=== PATIENT | male | born 1990 | race Caucasian/White ===

== ENCOUNTER → 2016-09-03 | Outpatient (CLI) | payer OTHER ==
[2016-09-03 17:16] LABS: BASO % 0.6 % (0.0-1.0); EOS # 0.2 K/mm3 (0.0-0.50); EOS % 2.1 % (0.0-3.0); LARGE UNSTAINED CELL # 0.2 K/mm3 (0.0-0.4); LYMPH % 44.1 % (24.0-44.0); MEAN CORPUSCULAR HEMOGLOBIN 29.5 pg (27.0-33.0); MEAN CORPUSCULAR HGB CONC 33.8 g/dl (32.0-36.5); MEAN CORPUSCULAR VOLUME 87.4 fl (80.0-96.0); MONO # 0.5 K/mm3 (0.0-0.8); MONO % 7.5 % (0.0-5.0); NEUTROPHILS # 2.9 K/mm3 (1.8-7.7); NEUTROPHILS % 42.7 % (36.0-66.0); PLATELET COUNT, AUTOMATED 228 k/mm3 (150-450); RED CELL DISTRIBUTION WIDTH 12.5 % (11.5-14.5); WHITE BLOOD COUNT 6.9 K/mm3 (4.0-10.0)
[2016-09-03 17:21] LABS: ALBUMIN 3.6 GM/DL (3.2-5.2); ALBUMIN/GLOBULIN RATIO 1.13 (1.00-1.93); ALKALINE PHOSPHATASE 53 U/L (45-117); ALT/SGPT 32 U/L (12-78); ANION GAP 8 MEQ/L (8-16); AST/SGOT 18 U/L (15-37); BILIRUBIN,TOTAL 0.4 MG/DL (0.2-1.0); BLOOD UREA NITROGEN 13 MG/DL (7-18); CALCIUM LEVEL 8.5 MG/DL (8.5-10.1); CARBON DIOXIDE LEVEL 26 MEQ/L (21-32); CHLORIDE LEVEL 104 MEQ/L (98-107); CREATININE FOR GFR 0.65 MG/DL (0.70-1.30); GLOMERULAR FILTRATION RATE > 60.0 (>60); GLUCOSE, FASTING 89 MG/DL (70-105); POTASSIUM SERUM 4.3 MEQ/L (3.5-5.1); SODIUM LEVEL 138 MEQ/L (136-145); TOTAL PROTEIN 6.8 GM/DL (6.4-8.2)
== END ==
LOC: M WUC 14:40
PROVIDERS: ATTEND Surgery
DX: Z01.812 Encounter for preprocedural laboratory examination (principal); I10 Essential (primary) hypertension; E66.01 Morbid (severe) obesity due to excess calories

== ENCOUNTER → 2016-09-06 | Outpatient (CLI) | payer OTHER | LOC: M WUC 10:49 | PROVIDERS: ATTEND Surgery | DX: Z01.812 Encounter for preprocedural laboratory examination (principal); E66.01 Morbid (severe) obesity due to excess calories; K21.9 Gastro-esophageal reflux disease without esophagitis; I10 Essential (primary) hypertension ==

== ENCOUNTER 2016-10-20 08:36 | Emergency (ER) | payer OTHER ==
[~2016-10-20] VITALS: Ht 185.4 cm; Wt 160.0 kg
[2016-10-20] MEDS ORDERED: NS 1,000 ML IV ONE ×2 (09:00→09:45)
[2016-10-20] MEDS ORDERED: HYDROmorphone HCL 1 MG/ML SYRINGE (J1170) IV PRN (09:00)
[2016-10-20] MEDS ORDERED: ONDANSETRON 4MG/2ML VIAL (J2405) IV ONE (09:00)
[2016-10-20 09:05] LABS: BASO % 0.4 % (0.0-1.0); EOS # 0.1 K/mm3 (0.0-0.50); EOS % 1.6 % (0.0-3.0); LARGE UNSTAINED CELL # 0.1 K/mm3 (0.0-0.4); LARGE UNSTAINED CELL % 1.6 % (0.0-4.0); LYMPH # 3.1 K/mm3 (1.5-6.5); LYMPH % 38.5 % (24.0-44.0); MEAN CORPUSCULAR HEMOGLOBIN 29.5 pg (27.0-33.0); MEAN CORPUSCULAR HGB CONC 34.4 g/dl (32.0-36.5); MEAN CORPUSCULAR VOLUME 85.6 fl (80.0-96.0); MONO # 0.4 K/mm3 (0.0-0.8); MONO % 4.9 % (0.0-5.0); NEUTROPHILS # 4.2 K/mm3 (1.8-7.7); NEUTROPHILS % 52.8 % (36.0-66.0); PLATELET COUNT, AUTOMATED 197 k/mm3 (150-450); RED CELL DISTRIBUTION WIDTH 12.8 % (11.5-14.5)
[2016-10-20 09:13] LABS: INR 0.95
[2016-10-20] MEDS ORDERED: HYDROmorphone HCL 1 MG/ML SYRINGE (J1170) IV ONE (09:15)
[2016-10-20] MEDS ORDERED: PIPERACILLIN/TAZOBACTAM SOD 4.5 GM in D5W MINI-BAG PLUS 50 ML IV ONE (09:15)
[2016-10-20] MEDS ORDERED: NS 1,000 ML IV SCH (09:29)
[2016-10-20 09:35] LABS: ALBUMIN 3.5 GM/DL (3.2-5.2); ALKALINE PHOSPHATASE 46 U/L (45-117); ALT/SGPT 23 U/L (12-78); ANION GAP 5 MEQ/L (8-16); AST/SGOT 10 U/L (15-37); BILIRUBIN,DIRECT 0.2 MG/DL (0.0-0.2); BILIRUBIN,TOTAL 0.5 MG/DL (0.2-1.0); BLOOD UREA NITROGEN 9 MG/DL (7-18); CALCIUM LEVEL 8.4 MG/DL (8.5-10.1); CARBON DIOXIDE LEVEL 25 MEQ/L (21-32); CHLORIDE LEVEL 109 MEQ/L (98-107); CREATININE FOR GFR 0.57 MG/DL (0.70-1.30); GLOMERULAR FILTRATION RATE > 60.0 (>60); GLUCOSE, FASTING 145 MG/DL (70-105); POTASSIUM SERUM 3.3 MEQ/L (3.5-5.1); SODIUM LEVEL 139 MEQ/L (136-145); TOTAL PROTEIN 6.2 GM/DL (6.4-8.2)
[2016-10-20] MEDS ORDERED: NS 500 ML IV ONE (09:45)
[2016-10-20] MEDS ORDERED: ISOVUE-370 76% 100ML VIAL (Q9967) As Ordered ONE (09:56)
[2016-10-20] MEDS ORDERED: FLUCONAZOLE 200 MG in APPROPRIATE DILUENT 1 EA IV ONE (10:00)
[2016-10-20] MEDS: HYDROmorphone HCL 1 MG/ML SYRINGE (J1170) IV PRN ×2 (10:22→11:00)
--- NOTE | 2016-10-20 10:52 | REP ---
PORTABLE CHEST: AP portable view of the chest is performed and compared to prior study of 12/17/2006. There is free intraperitoneal air under the diaphragm. There is somewhat poor ventilation of the lungs with mild bibasilar atelectatic change. Cardiac silhouette appears magnified. IMPRESSION: Free intraperitoneal air identified under the diaphragms. Dr. Goel was informed by telephone at the time of the exam 9:23 a.m., 10/20/2016. Signed by Dexter Berry MD 10/20/2016 07:26 P
[2016-10-20] MEDS ORDERED: PANTOPRAZOLE SODIUM 40 MG in D5W MINI-BAG PLUS 50 ML IV SCH (11:00)
--- NOTE | 2016-10-20 11:19 | REP ---
CT ABDOMEN AND PELVIS WITH IV CONTRAST: TECHNIQUE: Axial contrast enhanced images from the lung bases to the pubic symphysis using 100 mL Isovue 370 intravenous contrast material with multiplanar reformations. The visualized lung bases demonstrate mild atelectatic changes. There is free intraperitoneal air seen mainly in the anterior upper abdomen. Patient has had recent gastric bypass surgery. There are foci of free air along the left side of the gastric pouch and this may be the source of the free intraperitoneal air. There is mild free fluid in the pelvis. Liver, spleen, adrenals, pancreas and kidneys are grossly unremarkable. There is streak artifact from the patient's arms. Reportedly he was unable to raise the arms above his head. There is no abdominal aortic aneurysm. No significant adenopathy is seen in the abdomen or pelvis. No bowel thickening is seen. Urinary bladder is grossly unremarkable. IMPRESSION: Free intraperitoneal air as noted on recent chest radiograph. Dr. Goel was already informed of these findings. There is mild free fluid in the pelvis. Patient has had recent gastric bypass surgery. There are foci of free air along the left side of the gastric pouch and this may be the source of the free intraperitoneal air. Signed by Dexter Berry MD 10/20/2016 07:27 P
[2016-10-20 11:44] VITALS: BP 141/65
== END 2016-10-20 11:48 | disposition short-term general hospital (02) ==
LOC: EDBD 08:36 → M ED 09:12
DX: K91.81 Other intraoperative complications of digestive system (principal); Z98.84 Bariatric surgery status
CPT/HCPCS: 71010; 74177; 80048; 80076; 83690; 85025; 85610; 86850; 86900; 86901; 93041; 96374; 96375; 96376; 99284; C9113; J1170; J2405; J2543; Q9967

== ENCOUNTER 2017-05-01 03:44 | Emergency (ER) | payer OTHER | END 2017-05-01 04:29 | disposition left against medical advice (07) | LOC: M ED 03:44 | DX: Z53.21 Procedure and treatment not carried out due to patient leaving prior to being seen by health care provider (principal) ==

== ENCOUNTER 2019-03-16 08:35 | Emergency (ER) | payer OTHER ==
[~2019-03-16] VITALS: Ht 188 cm; Wt 158.4 kg
[2019-03-16 08:35] VITALS: BP 168/101
[~2019-03-16 08:35] MED LIST: ADDE30CA3 PO; ATIV1TAB10 PO; OMEP40CA97 PO
--- NOTE | 2019-03-16 09:22 | REP ---
Left knee series: Five views. History: Pain after fall. Findings: Five views left knee demonstrate three compartment osteoarthritis with narrowing and spur formation in the patellofemoral compartment and medial lateral tibial femoral spurring. There is no evidence of fracture, subluxation, or joint effusion. Impression: Three compartment osteoarthritis. No acute bony abnormality. Electronically Signed by Erick Swenson MD 03/16/2019 09:13 A
[2019-03-16] MEDS ORDERED: PRED20TA PO (09:49)
[2019-03-16] MEDS ORDERED: ACETAMINOPHEN 325 MG TAB PO ONE (10:00)
== END 2019-03-16 10:01 | disposition home or self-care (01) ==
LOC: M ED 08:35
DX: S89.92XA Unspecified injury of left lower leg, initial encounter (principal); M17.12 Unilateral primary osteoarthritis, left knee; W01.0XXA Fall on same level from slipping, tripping and stumbling without subsequent striking against object, initial encounter; Y99.0 Civilian activity done for income or pay; G47.33 Obstructive sleep apnea (adult) (pediatric); E66.9 Obesity, unspecified; Z79.899 Other long term (current) drug therapy

== ENCOUNTER 2019-06-02 03:51 | Emergency (ER) | payer OTHER, BC ==
[~2019-06-02] VITALS: Ht 185.4 cm; Wt 172.7 kg
[~2019-06-02 03:51] MED LIST changes: +PRED20TA PO
[2019-06-02] MEDS ORDERED: KETOROLAC 60 MG/2 ML VIAL (J1885) IM ONE (06:15)
[2019-06-02 06:37] VITALS: BP 132/77
[2019-06-02] MEDS ORDERED: KETO10TAB PO (06:39)
--- NOTE | 2019-06-02 09:13 | REP ---
REPEAT DICTATION CT LUMBAR SPINE WITHOUT CONTRAST: HISTORY: Pain. Preliminary report is provided at time of exam by [facility]. 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 No other extra vertebral abnormality is seen. Lumbar vertebral body heights are preserved. Alignment is normal. There is no evidence of spondylolysis or spondylolisthesis. Discogenic spurring is seen anteriorly at the T12-L1 and L1-L2 disc levels. There is mild disc space narrowing at L3-4. There is a right posterior and foraminal disc protrusion at L5-S1 compressing and displacing the right S1 root. At L4-5, there is a left lateral and left foraminal disc protrusion producing foraminal narrowing. At L3-4 there is minimal diffuse bulging. IMPRESSION: Left-sided inferior vena cava noted incidentally. Moderate-sized the right posterior and right foraminal focal disc protrusion at L5-S1 with nerve root compression and foraminal narrowing. Left foraminal and left lateral disc protrusion at L4-5. Electronically Signed by Erick Swenson MD 06/02/2019 02:00 P
--- NOTE | 2019-06-03 11:22 | ED PDOC ---
Post-Departure Follow-Up dr vela faxed formal report of ct ls spine for fu Yamileth Cui MD Jun 03, 2019 11:22
== END 2019-06-02 06:56 | disposition home or self-care (01) ==
LOC: M ED 03:51
DX: M51.36 Other intervertebral disc degeneration, lumbar region (principal); M48.061 Spinal stenosis, lumbar region without neurogenic claudication; M51.26 Other intervertebral disc displacement, lumbar region; M51.27 Other intervertebral disc displacement, lumbosacral region; M25.78 Osteophyte, vertebrae; E66.9 Obesity, unspecified; Z98.84 Bariatric surgery status
CPT/HCPCS: 72131; 96372; 99283; J1885

== ENCOUNTER → 2019-10-25 | Outpatient (REF) | payer BC ==
[~2019-10-25] MED LIST changes: +KETO10TAB PO
[2019-11-19 20:39] LABS: BASO # 0.1 10^3/uL (0.0-0.2); BASO % 0.7 % (0.0-1.0); EOS # 0.1 10^3/uL (0.0-0.5); EOS % 1.2 % (0.0-3.0); HEMATOCRIT 48.1 % (42.0-52.0); HEMOGLOBIN 15.7 g/dl (13.5-17.5); LYMPH # 2.7 10^3/uL (1.5-5.0); MEAN CORPUSCULAR HGB CONC 32.6 g/dl (32.0-36.5); MEAN CORPUSCULAR VOLUME 88.7 fl (80.0-96.0); MONO # 0.6 10^3/uL (0.0-0.8); MONO % 9.3 % (0.0-5.0); NEUTROPHILS # 3.4 10^3/uL (1.5-8.5); NEUTROPHILS % 49.7 % (36.0-66.0); PLATELET COUNT, AUTOMATED 234 10^3/uL (150-450); RED BLOOD COUNT 5.42 10^6/uL (4.30-6.10); WHITE BLOOD COUNT 6.9 10^3/uL (4.0-10.0)
[2019-11-26 13:31] LABS: ALBUMIN 3.9 GM/DL (3.2-5.2); ALT/SGPT 19 U/L (12-78); BILIRUBIN,TOTAL 0.7 MG/DL (0.2-1.0); BLOOD UREA NITROGEN 11 MG/DL (7-18); CALCIUM LEVEL 8.7 MG/DL (8.5-10.1); CARBON DIOXIDE LEVEL 28 MEQ/L (21-32); CHLORIDE LEVEL 107 MEQ/L (98-107); CREATININE FOR GFR 0.73 MG/DL (0.70-1.30); GLOMERULAR FILTRATION RATE > 60.0 (>60); GLUCOSE, FASTING 82 MG/DL (70-100); SODIUM LEVEL 141 MEQ/L (136-145); TOTAL 25(OH) VITAMIN D 13.9 NG/ML (30.0-100.0); TOTAL PROTEIN 6.9 GM/DL (6.4-8.2)
[2019-11-26 13:35] LABS: HEMOGLOBIN A1c 5.6 %
== END ==
LOC: M WUC 13:45
PROVIDERS: ATTEND Physician Assistant
DX: Z13.220 Encounter for screening for lipoid disorders (principal); Z13.29 Encounter for screening for other suspected endocrine disorder

== ENCOUNTER 2020-04-06 01:41 | Observation (INO) | payer BC ==
[~2020-04-06] VITALS: Ht 188 cm; Wt 174.7 kg
[2020-04-06] MEDS ORDERED: OMEP-221 PO (01:49)
[2020-04-06 02:30] LABS: BASO # 0.1 10^3/uL (0.0-0.2); BASO % 0.6 % (0.0-1.0); EOS # 0.1 10^3/uL (0.0-0.5); EOS % 0.6 % (0.0-3.0); HEMATOCRIT 48.1 % (42.0-52.0); HEMOGLOBIN 15.1 g/dl (13.5-17.5); LYMPH # 2.5 10^3/uL (1.5-5.0); LYMPH % 31.5 % (24.0-44.0); MEAN CORPUSCULAR HEMOGLOBIN 27.8 pg (27.0-33.0); MEAN CORPUSCULAR HGB CONC 31.4 g/dl (32.0-36.5); MEAN CORPUSCULAR VOLUME 88.6 fl (80.0-96.0); MONO # 0.7 10^3/uL (0.0-0.8); MONO % 8.5 % (0.0-5.0); NEUTROPHILS # 4.7 10^3/uL (1.5-8.5); NEUTROPHILS % 58.6 % (36.0-66.0); PLATELET COUNT, AUTOMATED 262 10^3/uL (150-450); RED BLOOD COUNT 5.43 10^6/uL (4.30-6.10)
--- NOTE | 2020-04-06 02:40 | REPVR ---
PROCEDURE INFORMATION: Exam: XR Chest, 1 View Exam date and time: 04/06/2020 2:23 AM Age: 30 years old Clinical indication: Other: Chest pain TECHNIQUE: Imaging protocol: XR of the chest Views: 1 view. COMPARISON: CR Chest, 1 view 10/20/2016 9:07 AM FINDINGS: Lungs: There is decreased inflation of the lungs. No focal infiltrates. Pleural space: Unremarkable. No pleural effusion. No pneumothorax. Heart/Mediastinum: Unremarkable. No cardiomegaly. Bones/joints: Unremarkable. Soft tissues: There are generous overlying soft tissues. IMPRESSION: Negative poor inspiratory chest. Electronically signed by: Gui De Luna On 04/06/2020 02:40:37 AM
[2020-04-06 02:45] LABS: INR 0.92; PROTHROMBIN TIME 12.6 SECONDS (12.5-14.3)
[2020-04-06 02:46] LABS: PARTIAL THROMBOPLASTIN TIME 30.4 SECONDS (24.2-38.5)
[2020-04-06 02:48] LABS: D-DIMER QUANT 300.93 ng/ml (<500)
[2020-04-06 03:30] LABS: ALT/SGPT 23 U/L (12-78); BILIRUBIN,DIRECT < 0.1 MG/DL (0.0-0.2); BILIRUBIN,TOTAL 0.2 MG/DL (0.2-1.0); BLOOD UREA NITROGEN 13 MG/DL (7-18); C REACTIVE PROTEIN QUANTITATIV 0.32 MG/DL (0.00-0.30); CALCIUM LEVEL 8.8 MG/DL (8.5-10.1); CARBON DIOXIDE LEVEL 27 MEQ/L (21-32); CHLORIDE LEVEL 110 MEQ/L (98-107); CK-MB VALUE MASS 1.6 NG/ML (<3.6); CPK CREATINE PHOSPHOKINASE 156 U/L (39-308); CREATININE FOR GFR 0.91 MG/DL (0.70-1.30); FREE T4 0.98 NG/DL (0.76-1.46); GLOMERULAR FILTRATION RATE > 60.0 (>60); GLUCOSE, FASTING 111 MG/DL (70-100); LIPASE 130 U/L (73-393); MB/CK RELATIVE INDEX 1.03 (< OR =4); POTASSIUM SERUM 4.1 MEQ/L (3.5-5.1); SODIUM LEVEL 143 MEQ/L (136-145); TOTAL PROTEIN 7.5 GM/DL (6.4-8.2); TROPONIN I 0.05 NG/ML (< 0.10)
--- NOTE | 2020-04-06 05:34 | ECGEPIP ---
[facility] - ED Test Date: 2020-04-06 Pat Name: BRITT QUINTEROS Department: Room: - Gender: Male Sisal Picker: MUMTAZ : 1990 Requested By: SAUL Vasquez Order Number: [id number] Reading MD: Saul Ramirez Measurements Intervals [place] Rate: 95 P: 58 NV: 138 QRS: 10 QRSD: 125 T: 49 QT: 336 QTc: 423 Interpretive Statements SINUS RHYTHM INCOMPLETE RIGHT BUNDLE BRANCH BLOCK Baseline artifact Comparison tracing not on file Electronically Signed on 04-06-2020 5:34:02 EST by Saul Ramirez
--- NOTE | 2020-04-06 05:36 | ECGEPIP ---
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
[2020-04-06 05:39] LABS: CK-MB VALUE MASS 1.9 NG/ML (<3.6); MB/CK RELATIVE INDEX 1.58 (< OR =4); TROPONIN I 0.19 NG/ML (< 0.10)
[2020-04-06] MEDS ORDERED: ASPIRIN 325 MG TAB PO ONE (06:15)
[2020-04-06 09:45] LABS: MB/CK RELATIVE INDEX 1.79 (< OR =4); TROPONIN I 0.15 NG/ML (< 0.10)
[2020-04-06 14:29] VITALS: BP 137/83
--- NOTE | 2020-04-06 20:40 | HPEPDOC ---
General Date of Admission Apr 06, 2020 at 09:52 Date of Service: Apr 06, 2020 Chief Complaint The patient is a 30-year-old male admitted with a reason for visit of Elevated Troponin Palpitations Pre Syncope. Source: Patient History of Present Illness Mr. Sp askew is a 30-year-old male with obesity and sleep apnea who presents with chest discomfort and presyncope. 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 At 1 AM, he was in the process of standing up when he felt lightheaded. He also developed a dull, pressure-like pain in his back chest and neck. Rated the pain 3-4 out of 10. Pain lasted about 3-4 minutes before resolving. In addition he felt palpitations. Palpitations and lightheadedness lasted for about 40 minutes. While in the ED he had serial troponins which trended downwards. Patient is admitted for observation for presyncope and chest pain. Home Medications Scheduled Omeprazole (Omeprazole) 40 Mg Capsule.dr, 40 MG PO QHS, (Reported) Allergies Coded Allergies: No Known Allergies (Unverified , 10/20/16) Past Medical History Medical History 1. Obesity 2. Sleep apnea on CPAP 3. Hyperlipidemia 4. Osteoarthritis in the left knee Surgical History 1. Tonsillectomy and adenoidectomy 2. Gastric bypass in 2017 Family History Father: Alive. History of stroke at the age of 51. Otherwise has diabetes mellitus Mother: Alive and healthy. Social History * Smoker: Denies Alcohol: occationally (last drink last week) Drugs: denies A-FIB/CHADSVASC A-FIB History Current/History of A-Fib/PAF?: No Review of Systems Constitutional: Denies: Chills, Fever Eyes: Denies: Eyelid inflammation ENT: Denies: Sore Throat Skin: Denies: Rash Pulmonary: Denies: Dyspnea, Cough Cardiovascular: Reports: Chest Pain (resolved), Lt Headedness Gastrointestinal: Denies: Nausea, Abdominal Pain, Diarrhea, Constipation Genitourinary: Denies: Dysuria Hematologic: Denies: Bruising Musculoskeletal: Reports: Neck Pain (resolved), Shoulder Pain (resolved) Neurological: Denies: Numbness Psych: Denies: Anxiety, Depression Physical Examination General Exam: Positive: Alert, Cooperative Eye Exam: Positive: EOMI; Negative: Sclera icteric ENT Exam: Positive: Atraumatic Neck Exam: Positive: Supple Chest Exam: Positive: Clear to auscultation; Negative: Rales, Rhonchi, Wheezing Heart Exam: Positive: Rate Normal, Regular Rhythm Abdomen Exam: Positive: Normal bowel sounds, Soft; Negative: Tenderness Extremity Exam: Negative: Edema Neuro Exam: Positive: Cranial Nerves 3-12 NL Psych Exam: Positive: Mental status NL, Mood NL Vital Signs Vital Signs Date Time Temp Pulse Resp B/P (MAP) Pulse Ox O2 Delivery O2 Flow Rate FiO2 04/06/20 14:29 96.7 68 18 137/83 (101) 98 Room Air Laboratory Data Labs 24H Laboratory Tests 2 04/06/20 02:20: Immature Granulocyte % (Auto) 0.2, Neutrophils (%) (Auto) 58.6, Lymphocytes (%) (Auto) 31.5, Monocytes (%) (Auto) 8.5H, Eosinophils (%) (Auto) 0.6, Basophils (%) (Auto) 0.6, Neutrophils # (Auto) 4.7, Lymphocytes # (Auto) 2.5, Monocytes # (Auto) 0.7, Eosinophils # (Auto) 0.1, Basophils # (Auto) 0.1, Nucleated Red Blood Cells % (auto) 0.0, Prothrombin Time 12.6, Prothromb Time International Ratio 0.92, Activated Partial Thromboplast Time 30.4, D-Dimer, Quantitative 300.93, Anion Gap 6L, Glomerular Filtration Rate > 60.0, Calcium Level 8.8, Total Bilirubin 0.2, Direct Bilirubin < 0.1, Aspartate Amino Transf (AST/SGOT) 18, Alanine Aminotransferase (ALT/SGPT) 23, Alkaline Phosphatase 76, Total Creatine Kinase 156, Creatine Kinase MB 1.6, Creatine Kinase MB Relative Index 1.03, Troponin I 0.05, C-Reactive Protein, Quantitative 0.32H, Total Protein 7.5, Albumin 4.0, Albumin/Globulin Ratio 1.1, Lipase 130, Thyroid Stimulating Hormone (TSH) 0.940, Free Thyroxine 0.98 04/06/20 04:33: Total Creatine Kinase 120, Creatine Kinase MB 1.9, Creatine Kinase MB Relative Index 1.58, Troponin I 0.19#H, DN-Bje-K-Type Natriuretic Peptide 19 04/06/20 08:58: Total Creatine Kinase 112, Creatine Kinase MB 2.0, Creatine Kinase MB Relative Index 1.79, Troponin I 0.15#H CBC/BMP Laboratory Tests 04/06/20 02:20 Microbiology Microbiology 04/06/20 Respiratory Virus Panel (PCR) ([facility]) - Final, Complete Assessment/Plan Mr. Snowden is a 30-year-old male with obesity and sleep apnea who is here for presyncopal event, palpitations, and chest pain. 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 Chest pain resolved after 3-4 minutes. He continued to have palpitations and lightheadedness for 40 minutes. Palpitations or lightheadedness resolved prior to coming to the ED. Patient will be monitored overnight on telemetry. Orthostatic vitals will be ordered in the morning. Plan / VTE VTE Prophylaxis Ordered?: Yes Plan Plan 1. Presyncope Vasovagal versus arrhythmia Galva palpitations and lightheadedness for 40 minutes Monitor on telemetry Echocardiogram ordered Orthostatics in the morning 2. BASIL May use CPAP at night 3. Obesity BMI of 49.4 Patient should speak with his PCP about weight loss strategies 4. GERD May be secondary to obesity Continue PPI 5. DVT prophylaxis Lovenox Disposition: Pending echocardiogram and telemetry. Patient may be able to be discharged tomorrow if stable GUERRERO MADDOX DO Apr 06, 2020 20:40
[2020-04-06 22:00] VITALS: BP 133/74
[2020-04-07 06:00] VITALS: BP 130/77
[2020-04-07 06:17] LABS: HEMATOCRIT 43.4 % (42.0-52.0); MEAN CORPUSCULAR HEMOGLOBIN 28.5 pg (27.0-33.0); MEAN CORPUSCULAR HGB CONC 32.3 g/dl (32.0-36.5); MEAN CORPUSCULAR VOLUME 88.4 fl (80.0-96.0); PLATELET COUNT, AUTOMATED 223 10^3/uL (150-450); RED BLOOD COUNT 4.91 10^6/uL (4.30-6.10); WHITE BLOOD COUNT 7.7 10^3/uL (4.0-10.0)
[2020-04-07 06:42] LABS: BLOOD UREA NITROGEN 13 MG/DL (7-18); CALCIUM LEVEL 8.4 MG/DL (8.5-10.1); CARBON DIOXIDE LEVEL 28 MEQ/L (21-32); CHLORIDE LEVEL 107 MEQ/L (98-107); CREATININE FOR GFR 0.74 MG/DL (0.70-1.30); GLOMERULAR FILTRATION RATE > 60.0 (>60); GLUCOSE, FASTING 94 MG/DL (70-100); MAGNESIUM LEVEL 2.1 MG/DL (1.8-2.4); SODIUM LEVEL 140 MEQ/L (136-145)
[2020-04-07] MEDS: OMEPRAZOLE 20 MG CAP PO SCH (08:41)
[2020-04-07] MEDS: ENOXAPARIN 40MG/0.4ML SYRINGE (J1650 PER 10MG) SC SCH (08:42)
[2020-04-07 09:54] VITALS: BP 113/62
[2020-04-07 09:58] VITALS: BP 133/77
[2020-04-07 09:59] VITALS: BP 124/79
[2020-04-07 14:00] VITALS: BP 127/79
--- NOTE | 2020-04-07 19:52 | IPNPDOC ---
Date Seen The patient was seen on 04/07/20. Progress Note SUBJECTIVE: Comfortable in the morning, had issues overnight because he did not have his CPAP. Asymptomatic since presented to the emergency department, no complaints at this time. Denies shortness of breath, chest pain, nausea, vomiting, diarrhea or constipation. PHYSICAL EXAMINATION: VITAL SIGNS: Please see below. GENERAL: Morbidly obese HEENT: Normocephalic, atraumatic, moist mucous membranes NECK: Supple CARDIOVASCULAR EXAMINATION: S1, S2, no murmurs RESPIRATORY EXAMINATION: , Poor air movement, diminished in the bases ABDOMINAL EXAMINATION: Soft, nontender, nondistended, positive bowel sounds EXTREMITIES: Range of motion intact SKIN: No rash NEUROLOGICAL EXAMINATION: Alert and oriented 3, no focal deficits PSYCHIATRIC EXAMINATION: Calm and cooperative LABORATORY DATA, IMAGING STUDIES, MICROBIOLOGY: Please see below. ASSESSMENT AND PLAN: 30-year-old morbidly obese male with past medical history of sleep apnea, admitted for monitoring after experiencing palpitations and ches t discomfort. PROBLEMS: 1. Palpitations with chest discomfort Isolated event, resolved on his way to the emergency department after 30 minutes, has not recurred since. Questionable arrhythmia, given history of obstructive sleep apnea. Cardiac workup negative so far, TTE pending. Recommend diet and exercise, weight loss and strict compliance with CPAP. DVT prophylaxis: Lovenox. GI prophylaxis: Home PPI VS, I&O, 24H, Fishbone Vital Signs/I&O Vital Signs Date Time Temp Pulse Resp B/P (MAP) Pulse Ox O2 Delivery O2 Flow Rate FiO2 04/07/20 14:00 98.1 72 16 127/79 (95) 95 Room Air 04/06/20 20:00 2.0 I&O- Last 24 Hours up to 6 AM 04/07/20 06:00 Intake Total 1000 ml Output Total 0 ml Balance 1000 ml Laboratory Data 24H LABS Laboratory Tests 2 04/07/20 06:06: Nucleated Red Blood Cells % (auto) 0.0, Anion Gap 5L, Glomerular Filtration Rate > 60.0, Calcium Level 8.4L, Magnesium Level 2.1 CBC/BMP Laboratory Tests 04/07/20 06:06 Microbiology Microbiology 04/06/20 Respiratory Virus Panel (PCR) ([facility]) - Final, Complete VALENTIN PFEIFFER MD Apr 07, 2020 19:52
[2020-04-07 20:15] VITALS: BP 132/77
--- NOTE | 2020-04-07 21:22 | ECGEPIP ---
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
[2020-04-08 06:00] VITALS: BP 139/78
[2020-04-08 07:48] LABS: HEMATOCRIT 42.9 % (42.0-52.0); HEMOGLOBIN 14.4 g/dl (13.5-17.5); MEAN CORPUSCULAR HEMOGLOBIN 29.4 pg (27.0-33.0); MEAN CORPUSCULAR HGB CONC 33.6 g/dl (32.0-36.5); MEAN CORPUSCULAR VOLUME 87.7 fl (80.0-96.0); PLATELET COUNT, AUTOMATED 241 10^3/uL (150-450); RED BLOOD COUNT 4.89 10^6/uL (4.30-6.10); WHITE BLOOD COUNT 7.7 10^3/uL (4.0-10.0)
[2020-04-08 08:12] LABS: BLOOD UREA NITROGEN 12 MG/DL (7-18); CALCIUM LEVEL 8.4 MG/DL (8.5-10.1); CARBON DIOXIDE LEVEL 28 MEQ/L (21-32); CHLORIDE LEVEL 107 MEQ/L (98-107); CREATININE FOR GFR 0.72 MG/DL (0.70-1.30); GLOMERULAR FILTRATION RATE > 60.0 (>60); GLUCOSE, FASTING 93 MG/DL (70-100); POTASSIUM SERUM 3.9 MEQ/L (3.5-5.1); SODIUM LEVEL 141 MEQ/L (136-145)
[2020-04-08 09:00] VITALS: BP 121/75
[2020-04-08] MEDS: ENOXAPARIN 40MG/0.4ML SYRINGE (J1650 PER 10MG) SC SCH (10:09)
[2020-04-08] MEDS: OMEPRAZOLE 20 MG CAP PO SCH (10:09)
[2020-04-08 14:00] VITALS: BP 130/68
--- NOTE | 2020-04-08 22:09 | DS.PDOC ---
Discharge Summary General Date of Admission Apr 06, 2020 at 09:52 Date of Discharge 04/08/20 Attending Physician: VALENTIN PFEIFFER MD Discharge Summary PROCEDURES PERFORMED DURING STAY: None. ADMITTING DIAGNOSES: 1. , Palpitations, presyncope. DISCHARGE DIAGNOSES: 1. , Palpitations, presyncope. COMPLICATIONS/CHIEF COMPLAINT: Elevated Troponin Palpitations Pre Syncope. HISTORY OF PRESENT ILLNESS: 30-year-old male with past medical history of obstructive sleep apnea and morbid obesity was admitted for palpitations and presyncope. Patient had an isolated episode prior to admission, resolved within 30 minutes, no recurrence throughout hospitalization. Patient was admitted for o bservation and cardiac workup as he had slightly elevated troponin. Patient is clinically remained stable throughout hospitalization without recurrence of any symptoms, cardiac workup negative for acute pathology. Patient is stable for discharge and outpatient follow-up with primary care physician. Patient is agreeable with this plan. HOSPITAL COURSE: As above. DISCHARGE MEDICATIONS: Please see below. ALLERGIES: Please see below. PHYSICAL EXAMINATION: VITAL SIGNS: Please see below. GENERAL: Morbidly obese HEENT: Normocephalic, atraumatic, moist mucous membranes NECK: Supple CARDIOVASCULAR EXAMINATION: S1, S2, no murmurs RESPIRATORY EXAMINATION: , Poor air movement, diminished in the bases ABDOMINAL EXAMINATION: Soft, nontender, nondistended, positive bowel sounds EXTREMITIES: Range of motion intact SKIN: No rash NEUROLOGICAL EXAMINATION: Alert and oriented 3, no focal deficits PSYCHIATRIC EXAMINATION: Calm and cooperative LABORATORY DATA: Please see below. PROGNOSIS: Fair ACTIVITY: As tolerated. DIET: Cardiac DISCHARGE PLAN: Follow with PCP in 1-2 weeks DISPOSITION: 01 Home, Self-Care. DISCHARGE INSTRUCTIONS: 1. As above. DISCHARGE CONDITION: Stable. TIME SPENT ON DISCHARGE: Greater than 15 minutes. Vital Signs/I&Os Vital Signs Date Time Temp Pulse Resp B/P (MAP) Pulse Ox O2 Delivery O2 Flow Rate FiO2 04/08/20 14:00 98.1 77 15 130/68 (88) 99 Room Air 04/06/20 20:00 2.0 I&O- Last 24 Hours up to 6 AM 04/08/20 06:00 Intake Total 1600 ml Output Total 1100 ml Balance 500 ml Laboratory Data Labs 24H Laboratory Tests 2 04/08/20 07:04: Nucleated Red Blood Cells % (auto) 0.0, Anion Gap 6L, Glomerular Filtration Rate > 60.0, Calcium Level 8.4L CBC/BMP Laboratory Tests 04/08/20 07:04 Microbiology Microbiology 04/06/20 Respiratory Virus Panel (PCR) ([facility]) - Final, Complete Discharge Medications Scheduled Omeprazole (Omeprazole) 40 Mg Capsule., 40 MG PO QHS, (Reported) Allergies Coded Allergies: No Known Allergies (Unverified , 10/20/16) VALENTIN PFEIFFER MD Apr 08, 2020 22:09
--- NOTE | 2020-04-10 07:04 | ECHO ---
DATE OF PROCEDURE: 04/06/2020 Age: 30 Gender: Male Height: 74 inches Weight: 390 pounds Body surface area: 2.89 m2 PATIENT LOCATION: Inpatient [address] [place] [address], Room 4219. REFERRING PHYSICIAN: Duran Taylor DO INDICATION: Abnormal EKG. MEASUREMENTS: 2D Measurements: RV 4.4 cm LV 5.2 cm Septum 1.2 cm Posterior wall 1.2 cm Aortic Root 3.3 cm LA 4.4 cm LVEF 65% Doppler Measurements: AV 1.3 m/s LVOT 1.0 m/s LVOT diameter 2.2 cm MV-E 88, A 62, E/A ratio 1.4 Early mitral deceleration time 185 msec E prime medial 6.3, A prime medial 12.5, E prime lateral 9.7 Average E/E prime ratio 11/PCWP 15.5 mmHg PV 1.0 m/s Pulmonary artery acceleration time 116 msec RVSP 30 mmHg IVC 2.0 cm COMMENTS: Normal sinus rhythm without intraventricular conduction disturbance. Somewhat technically challenging study in light of the patients body habitus, but diagnostically useful information was still obtained. M-mode and two-dimensional echocardiography was performed with pulse, continuous wave, color flow, and tissue Doppler studies. Borderline symmetrical left ventricular hypertrophy with normal wall motion. Mildly dilated left atrium with grade 2 LV diastolic dysfunction, but currently estimated mean left atrial pressure was upper limits of normal. Mildly dilated right heart chambers with normal wall motion and Doppler evidence of mild pulmonary hypertension. Normal inferior vena cava (IVC) size with adequate respiratory collapse suggestive of an elevated central venous pressure perhaps upper limits of normal. Normal aortic dimensions. Normal appearing and functioning aortic valve. Normal appearing and functioning mitral valve. No apparent intracardiac mass or pericardial effusion. MTDD
== END 2020-04-08 14:45 | disposition home or self-care (01) ==
LOC: M ED 01:41 → M ED INP 09:52 → M MSPAV 14:23
PROVIDERS: ADMIT Internal Medicine; ATTEND Internal Medicine
DX: R00.2 Palpitations (principal); R55 Syncope and collapse; R79.89 Other specified abnormal findings of blood chemistry; G47.33 Obstructive sleep apnea (adult) (pediatric); E66.01 Morbid (severe) obesity due to excess calories; E78.49 Other hyperlipidemia; M17.12 Unilateral primary osteoarthritis, left knee; Z79.899 Other long term (current) drug therapy; Z98.84 Bariatric surgery status
CPT/HCPCS: 36415; 71045; 80048; 80076; 82550; 82553; 83690; 83735; 83880; 84439; 84443; 84484; 85025; 85027; 85379; 85610; 85730; 86140; 87486; 87581; 87633; 87798; 93005; 93041; 93306; 94760; 96372; 99285; J1650

== ENCOUNTER 2020-10-17 01:50 | Emergency (ER) | payer BC ==
[~2020-10-17] VITALS: Ht 190.5 cm; Wt 176.8 kg
[~2020-10-17 01:50] MED LIST changes: +OMEP-221 PO; +OMEP40CA4 PO; -OMEP40CA97 PO
--- NOTE | 2020-10-17 05:33 | REPVR ---
PROCEDURE INFORMATION: Exam: XR Left Hand Exam date and time: 10/17/2020 3:22 AM Age: 30 years old Clinical indication: Pain; Hand; Left; Additional info: Fell at work with hand out on concrete floor TECHNIQUE: Imaging protocol: XR Left hand. Views: 3 or more views. COMPARISON: No relevant prior studies available. FINDINGS: Bones/joints: 2.7 mm linear opacity projects adjacent to the supero medial margin of the triquetrum on the externally rotated view of the hand. On the lateral view, 1.8 mm linear opacity projects adjacent to the dorsal margin of head the 3rd metacarpal. Soft tissues: Normal. IMPRESSION: Possible chip fractures of the triquetrum and dorsal margin of the 3rd metacarpal as described above. Directed palpation and clinical correlation suggested Electronically signed by: Marianela Gamboa On 10/17/2020 05:32:53 AM
--- NOTE | 2020-10-17 05:37 | REPVR ---
PROCEDURE INFORMATION: Exam: XR Left Ankle Exam date and time: 10/17/2020 3:22 AM Age: 30 years old Clinical indication: Pain; Ankle; Left; Additional info: Slipped at work rolling ankle over TECHNIQUE: Imaging protocol: XR Left ankle. Views: 3 or more views. COMPARISON: CR Knee, complete 03/16/2019 9:02 AM FINDINGS: Bones/joints: Soft tissue swelling noted over the medial and the lateral malleolus. 0.7 mm plantar calcaneal spur. Mild irregularity of the distal articular surface of the tibia anteriorly joint noted on the lateral view. No radiographic evidence of fracture Soft tissues: See "Bones/joints" finding. IMPRESSION: 1. Soft tissue swelling without radiographic fracture. 2. Mild irregularity of tibiotalar joint anteriorly suggests mild osteoarthritis Electronically signed by: Marianela Gamboa On 10/17/2020 05:37:19 AM
[2020-10-17] MEDS ORDERED: ACETAMINOPHEN 500 MG TAB PO ONE (06:15)
[2020-10-17 06:37] VITALS: BP 152/77
== END 2020-10-17 07:01 | disposition home or self-care (01) ==
LOC: M ED 01:50
DX: S62.313A Displaced fracture of base of third metacarpal bone, left hand, initial encounter for closed fracture (principal); S62.112A Displaced fracture of triquetrum [cuneiform] bone, left wrist, initial encounter for closed fracture; S93.402A Sprain of unspecified ligament of left ankle, initial encounter; W01.0XXA Fall on same level from slipping, tripping and stumbling without subsequent striking against object, initial encounter; Y99.0 Civilian activity done for income or pay; Y92.9 Unspecified place or not applicable; Y93.9 Activity, unspecified; Z98.84 Bariatric surgery status

== ENCOUNTER → 2020-12-11 | Outpatient (REF) | payer BC | LOC: M LAB REF 17:57 | PROVIDERS: ATTEND Physician Assistant | DX: J01.90 Acute sinusitis, unspecified (principal) ==

== ENCOUNTER → 2021-04-11 | Outpatient (REF) | payer BC | LOC: M LAB REF 17:04 | PROVIDERS: ATTEND Family Medicine | DX: J06.9 Acute upper respiratory infection, unspecified (principal) ==

== ENCOUNTER → 2022-04-04 | Outpatient (REF) | payer BC ==
[~2022-04-04] MED LIST changes: -OMEP-221 PO; +OMEP40CA5 PO
== END ==
LOC: M LAB REF 17:26
PROVIDERS: ATTEND Family Medicine
DX: J01.90 Acute sinusitis, unspecified (principal)

== ENCOUNTER 2022-09-12 05:00 | Emergency (ER) | payer BC ==
[2022-09-12] MEDS ORDERED: ENAL1TAB52 (05:04)
[2022-09-12] MEDS ORDERED: PERCOCET 5MG/325MG TAB PO ONE (08:25)
[2022-09-12] MEDS ORDERED: HYDR-4571 PO (09:47)
[2022-09-12 09:59] VITALS: BP 150/83; TEMP 98; O2SAT 99
== END 2022-09-12 10:03 | disposition home or self-care (01) ==
LOC: M ED 05:00
DX: S83.012A Lateral subluxation of left patella, initial encounter (principal); V18.0XXA Pedal cycle driver injured in noncollision transport accident in nontraffic accident, initial encounter; M54.50 Low back pain, unspecified; R51.9 Headache, unspecified; Z98.84 Bariatric surgery status; Z79.83 Long term (current) use of bisphosphonates; Z79.899 Other long term (current) drug therapy

== ENCOUNTER 2022-09-14 15:21 | Emergency (ER) | payer BC ==
[~2022-09-14] VITALS: Ht 190.5 cm; Wt 190.5 kg
[~2022-09-14 15:21] MED LIST changes: +ENAL1TAB52; +HYDR-4571 PO
[2022-09-14 15:25] VITALS: BP 139/74; TEMP 98.1; O2SAT 98
[2022-09-14 16:39] LABS: BASO % 0.6 % (0.0-1.0); EOS # 0.1 10^3/uL (0.0-0.5); EOS % 1.4 % (0.0-3.0); HEMATOCRIT 39.6 % (42.0-52.0); HEMOGLOBIN 12.7 g/dl (13.5-17.5); LYMPH # 2.4 10^3/uL (1.5-5.0); LYMPH % 34.1 % (24.0-44.0); MEAN CORPUSCULAR HEMOGLOBIN 27.3 pg (27.0-33.0); MEAN CORPUSCULAR HGB CONC 32.1 g/dl (32.0-36.5); MONO # 0.6 10^3/uL (0.0-0.8); MONO % 8.2 % (2.0-8.0); NEUTROPHILS # 3.9 10^3/uL (1.5-8.5); NEUTROPHILS % 55.3 % (36.0-66.0); PLATELET COUNT, AUTOMATED 264 10^3/uL (150-450); RED BLOOD COUNT 4.66 10^6/uL (4.30-6.10); WHITE BLOOD COUNT 7.1 10^3/uL (4.0-10.0)
[2022-09-14 16:59] LABS: INR 0.9; PARTIAL THROMBOPLASTIN TIME 27.2 SECONDS (24.8-34.2); PROTHROMBIN TIME 12.3 SECONDS (12.5-14.5)
[2022-09-14 17:02] LABS: D-DIMER QUANT 564.27 ng/ml (<500)
[2022-09-14 17:06] LABS: BLOOD UREA NITROGEN 13 MG/DL (9-23); CALCIUM LEVEL 8.9 MG/DL (8.5-10.1); CARBON DIOXIDE LEVEL 26 MMOL/L (20-31); CHLORIDE LEVEL 106 MMOL/L (98-107); CREATININE FOR GFR 0.58 MG/DL (0.70-1.30); GLOMERULAR FILTRATION RATE > 60.0 (>60); GLUCOSE, FASTING 100 MG/DL (60-100); POTASSIUM SERUM 4.6 MMOL/L (3.5-5.1); SODIUM LEVEL 140 MMOL/L (136-145)
== END 2022-09-14 18:58 | disposition home or self-care (01) ==
LOC: M ED 15:21
DX: S80.12XA Contusion of left lower leg, initial encounter (principal); I10 Essential (primary) hypertension; F10.10 Alcohol abuse, uncomplicated; Z98.84 Bariatric surgery status; Z79.83 Long term (current) use of bisphosphonates; Z79.899 Other long term (current) drug therapy

== ENCOUNTER → 2022-09-18 | Outpatient (CLI) | payer BC | LOC: M SOG 14:15 | PROVIDERS: ATTEND Physician Assistant | DX: M22.2X2 Patellofemoral disorders, left knee (principal); S83.012D Lateral subluxation of left patella, subsequent encounter; M25.462 Effusion, left knee ==

== ENCOUNTER → 2022-10-02 | Outpatient (CLI) | payer BC ==
[~2022-10-02] MED LIST changes: +HYDR50TA70 PO; +OMEP-173 PO
== END ==
LOC: M PLAIMG 07:05
PROVIDERS: ATTEND Physician Assistant
DX: S82.042A Displaced comminuted fracture of left patella, initial encounter for closed fracture (principal); S83.282A Other tear of lateral meniscus, current injury, left knee, initial encounter; M22.2X2 Patellofemoral disorders, left knee; X58.XXXA Exposure to other specified factors, initial encounter; Y92.9 Unspecified place or not applicable

== ENCOUNTER 2022-10-09 13:59 | Day surgery (SDC) | payer BC ==
[~2022-10-09] VITALS: Ht 190.5 cm; Wt 198.6 kg
[2022-10-09] MEDS ORDERED: LR 1,000 ML IV SCH (14:30)
[2022-10-09] MEDS ORDERED: ceFAZolin SOD 1 GM in D5W MINI-BAG PLUS 50 ML IV ONE (16:25)
[2022-10-09] MEDS ORDERED: ceFAZolin SOD 2 GM in IV 1 EA IV ONE (16:25)
[2022-10-09] MEDS ORDERED: MIDAZOLAM INJ 2MG/2ML VIAL As Ordered ONE ×2 (17:11→17:33)
[2022-10-09] MEDS ORDERED: KETOROLAC 60MG 2ML VIAL As Ordered ONE (17:33)
[2022-10-09] MEDS ORDERED: ONDANSETRON 4MG 2ML VIAL As Ordered ONE (17:33)
[2022-10-09] MEDS ORDERED: ACETAMINOPHEN 1000MG 100ML IV BAG As Ordered ONE (17:33)
[2022-10-09] MEDS ORDERED: LIDOCAINE 2% 100MG/5ML SDV (FOR ANES.) As Ordered ONE (17:33)
[2022-10-09] MEDS ORDERED: fentaNYL 100 MCG/2 ML INJECTION As Ordered ONE ×2 (17:33→18:51)
[2022-10-09] MEDS ORDERED: propofoL 200 MG/20 ML VIAL As Ordered ONE (17:33)
[2022-10-09] MEDS ORDERED: MORPHINE 10 MG/ML 1ML VIAL As Ordered ONE (18:56)
[2022-10-09] MEDS ORDERED: HYDR-4571 PO (19:53)
[2022-10-09] MEDS ORDERED: fentaNYL 100 MCG/2 ML INJECTION IV PRN (20:10)
[2022-10-09] MEDS ORDERED: ONDANSETRON 4MG 2ML VIAL IV PRN (20:10)
[2022-10-09] MEDS ORDERED: HYDROMORPHONE HCL 0.5 MG/ 0.5 ML SYRINGE IV PRN (20:10)
[2022-10-09] MEDS: oxyCODONE 5MG TAB PO PRN ×2 (20:12→20:55)
[2022-10-09 22:30] VITALS: BP 175/83; TEMP 97.8; O2SAT 98
== END 2022-10-09 22:35 | disposition home or self-care (01) ==
LOC: M SDC 13:59
PROVIDERS: ATTEND Orthopaedic Surgery
DX: S82.002A Unspecified fracture of left patella, initial encounter for closed fracture (principal); S83.412A Sprain of medial collateral ligament of left knee, initial encounter; I10 Essential (primary) hypertension; K21.9 Gastro-esophageal reflux disease without esophagitis; G47.33 Obstructive sleep apnea (adult) (pediatric); Z79.899 Other long term (current) drug therapy
CPT/HCPCS: 27380; 27566; 76000; 88304; 88311; C1713; C1762; J0131; J2250; J2405; J3010

== ENCOUNTER → 2022-10-22 | Outpatient (CLI) | payer BC | LOC: M SOG 11:00 | PROVIDERS: ATTEND Orthopaedic Surgery Hand Surgery | DX: S82.002A Unspecified fracture of left patella, initial encounter for closed fracture (principal) ==

== ENCOUNTER → 2022-11-04 | Outpatient (CLI) | payer BC | LOC: M SOG 07:48 | PROVIDERS: ATTEND Orthopaedic Surgery | DX: S82.002D Unspecified fracture of left patella, subsequent encounter for closed fracture with routine healing (principal) ==

== ENCOUNTER → 2022-12-16 | Outpatient (CLI) | payer BC | LOC: M SOG 07:50 | PROVIDERS: ATTEND Orthopaedic Surgery | DX: S82.002A Unspecified fracture of left patella, initial encounter for closed fracture (principal); Y93.9 Activity, unspecified; Y92.9 Unspecified place or not applicable ==

== ENCOUNTER → 2023-01-15 | Outpatient (CLI) | payer BC | LOC: M SOG 08:16 | PROVIDERS: ATTEND Orthopaedic Surgery | DX: S82.002A Unspecified fracture of left patella, initial encounter for closed fracture (principal); Y92.9 Unspecified place or not applicable; Y93.9 Activity, unspecified ==

== ENCOUNTER 2024-02-13 22:40 | Emergency (ER) | payer OTHER ==
[~2024-02-13] VITALS: Ht 190.5 cm; Wt 196.0 kg
[2024-02-13 22:42] VITALS: BP 149/71; TEMP 98.6; O2SAT 96
[2024-02-13] MEDS ORDERED: NAPR-837 PO (23:44)
[2024-02-14] MEDS: NAPROXEN 250 MG TAB PO ONE (00:06)
== END 2024-02-14 00:08 | disposition home or self-care (01) ==
LOC: M ED 22:40
DX: S63.501A Unspecified sprain of right wrist, initial encounter (principal); X50.0XXA Overexertion from strenuous movement or load, initial encounter; I10 Essential (primary) hypertension; E78.5 Hyperlipidemia, unspecified; Y92.9 Unspecified place or not applicable; Y93.89 Activity, other specified; Y99.0 Civilian activity done for income or pay; Z79.899 Other long term (current) drug therapy

== ENCOUNTER → 2024-07-01 | Outpatient (CLI) | payer BC ==
[~2024-07-01] MED LIST changes: +NAPR-837 PO
[2024-07-01 13:34] LABS: BASO # 0.1 10^3/uL (0.0-0.2); BASO % 0.6 % (0.0-1.0); EOS # 0.1 10^3/uL (0.0-0.5); HEMATOCRIT 37.6 % (42.0-52.0); HEMOGLOBIN 11.8 g/dl (13.5-17.5); LYMPH # 3.7 10^3/uL (1.5-5.0); LYMPH % 35.4 % (24.0-44.0); MEAN CORPUSCULAR HEMOGLOBIN 24.7 pg (27.0-33.0); MEAN CORPUSCULAR HGB CONC 31.4 g/dl (32.0-36.5); MEAN CORPUSCULAR VOLUME 78.7 fl (80.0-96.0); MONO # 0.9 10^3/uL (0.0-0.8); MONO % 8.9 % (2.0-8.0); NEUTROPHILS # 5.6 10^3/uL (1.5-8.5); NEUTROPHILS % 53.7 % (36.0-66.0); PLATELET COUNT, AUTOMATED 317 10^3/uL (150-450); RED BLOOD COUNT 4.78 10^6/uL (4.30-6.10); WHITE BLOOD COUNT 10.4 10^3/uL (4.0-10.0)
[2024-07-01 13:59] LABS: ALKALINE PHOSPHATASE 64 U/L (40-129); ALT/SGPT 23 U/L (7.0-40); AST/SGOT 28 U/L (<34); BILIRUBIN,TOTAL 0.6 MG/DL (0.3-1.2); BLOOD UREA NITROGEN 15 MG/DL (9-23); CALCIUM LEVEL 9.1 MG/DL (8.5-10.1); CARBON DIOXIDE LEVEL 25 MMOL/L (20-31); CHLORIDE LEVEL 107 MMOL/L (98-107); CHOLESTEROL LEVEL 273 MG/DL (<200); CHOLESTEROL RISK RATIO 6.87 (<5); GLOMERULAR FILTRATION RATE > 60.0 (>60); GLUCOSE, FASTING 93 MG/DL (60-100); HDL CHOLESTEROL 39.7 MG/DL (>40); IRON (FE) 45 UG/DL (65-175); LDL CHOLESTEROL 213.5 MG/DL (<100); NON-HDL-C 233.3 MG/DL; POTASSIUM SERUM 3.7 MMOL/L (3.5-5.1); SODIUM LEVEL 142 MMOL/L (136-145); TOTAL PROTEIN 7.2 G/DL (5.7-8.2); TRIGLYCERIDES LEVEL 99 MG/DL (<150)
[2024-07-01 14:00] LABS: PERCENT SATURATION 10.6 % (19.7-50.0); TOTAL IRON BINDING CAPACITY 426 UG/DL (250-425)
[2024-07-01 14:01] LABS: FERRITIN 6.4 NG/ML (10.5-307.3); FREE T4 1.02 NG/DL (0.89-1.76); THYROID STIMULATING HORMONE 1.643 uIU/ML (0.55-4.78)
[2024-07-01 14:02] LABS: VITAMIN B12 LEVEL 266 PG/ML (211-911)
[2024-07-01 14:05] LABS: HEMOGLOBIN A1c 5.2 % (4.0-6.0)
== END ==
LOC: M WUC 08:18
PROVIDERS: ATTEND Physician Assistant
DX: K21.00 Gastro-esophageal reflux disease with esophagitis, without bleeding (principal); I10 Essential (primary) hypertension; E66.01 Morbid (severe) obesity due to excess calories

== ENCOUNTER → 2024-10-12 | Outpatient (CLI) | payer BC ==
[2024-10-12 19:07] LABS: VITAMIN B12 LEVEL 314 PG/ML (211-911)
[2024-10-12 19:09] LABS: ALT/SGPT 20 U/L (7.0-40); AST/SGOT 23 U/L (<34); CALCIUM LEVEL 9.0 MG/DL (8.5-10.1); CARBON DIOXIDE LEVEL 27 MMOL/L (20-31); CHLORIDE LEVEL 103 MMOL/L (98-107); CHOLESTEROL LEVEL 169 MG/DL (<200); CHOLESTEROL RISK RATIO 5.13 (<5); CREATININE FOR GFR 0.63 MG/DL (0.70-1.30); GLOMERULAR FILTRATION RATE > 90.0 (>60); IRON (FE) 110 UG/DL (65-175); LDL CHOLESTEROL 117.5 MG/DL (<100); NON-HDL-C 136.1 MG/DL; PERCENT SATURATION 27.6 % (19.7-50.0); POTASSIUM SERUM 4.1 MMOL/L (3.5-5.1); SODIUM LEVEL 142 MMOL/L (136-145); TRIGLYCERIDES LEVEL 93 MG/DL (<150)
[2024-10-12 19:35] LABS: BASO # 0.1 10^3/uL (0.0-0.2); BASO % 0.5 % (0.0-1.0); EOS # 0.1 10^3/uL (0.0-0.5); EOS % 0.9 % (0.0-3.0); LYMPH # 3.4 10^3/uL (1.5-5.0); LYMPH % 35.4 % (24.0-44.0); MONO # 0.9 10^3/uL (0.0-0.8); MONO % 9.5 % (2.0-8.0); NEUTROPHILS # 5.1 10^3/uL (1.5-8.5); NEUTROPHILS % 53.5 % (36.0-66.0); PLATELET COUNT, AUTOMATED 272 10^3/uL (150-450)
== END ==
LOC: M WUC 13:41
PROVIDERS: ATTEND Physician Assistant
DX: D50.9 Iron deficiency anemia, unspecified (principal); Z98.84 Bariatric surgery status; E78.00 Pure hypercholesterolemia, unspecified

== ENCOUNTER → 2024-12-06 | Outpatient (CLI) | payer BC ==
[~2024-12-06] MED LIST changes: +AMPH1CAP5 PO
[2024-12-06 17:58] LABS: BASO # 0.1 10^3/uL (0.0-0.2); BASO % 0.8 % (0.0-1.0); EOS # 0.1 10^3/uL (0.0-0.5); EOS % 1.4 % (0.0-3.0); LYMPH # 2.9 10^3/uL (1.5-5.0); LYMPH % 36.5 % (24.0-44.0); MONO # 0.9 10^3/uL (0.0-0.8); MONO % 10.9 % (2.0-8.0); NEUTROPHILS # 3.9 10^3/uL (1.5-8.5); NEUTROPHILS % 50.1 % (36.0-66.0); PLATELET COUNT, AUTOMATED 295 10^3/uL (150-450)
[2024-12-06 18:01] LABS: CALCIUM LEVEL 9.4 MG/DL (8.5-10.1); CARBON DIOXIDE LEVEL 27 MMOL/L (20-31); CHLORIDE LEVEL 105 MMOL/L (98-107); CREATININE FOR GFR 0.67 MG/DL (0.70-1.30); GLOMERULAR FILTRATION RATE > 90.0 (>60); POTASSIUM SERUM 4.0 MMOL/L (3.5-5.1); SODIUM LEVEL 142 MMOL/L (136-145)
== END ==
LOC: M WUC 14:40
PROVIDERS: ATTEND Podiatrist
DX: M72.2 Plantar fascial fibromatosis (principal); M79.671 Pain in right foot

== ENCOUNTER 2024-12-10 07:26 | Day surgery (SDC) | payer BC ==
[~2024-12-10] VITALS: Ht 190.5 cm; Wt 189.9 kg
[2024-12-10] MEDS ORDERED: LR 1,000 ML IV SCH (08:00)
[2024-12-10] MEDS ORDERED: ONDANSETRON 4MG 2ML VIAL As Ordered ONE (08:28)
[2024-12-10] MEDS ORDERED: LIDOCAINE 2% 100 MG/5 ML SDV (FOR ANES.) As Ordered ONE (08:28)
[2024-12-10] MEDS ORDERED: MIDAZOLAM INJ 2 MG/2 ML VIAL As Ordered ONE (08:29)
[2024-12-10] MEDS: ceFAZolin SOD 3 GM in DEXTROSE 5% (D5W) MINI-BAG PLU 1... IV ONE (09:55)
[2024-12-10] MEDS: GENTAMICIN SULF 80 MG/2 ML VIAL As Ordered ONE (10:22)
[2024-12-10] MEDS: dexAMETHasone 4 MG/ML 1 ML VIAL As Ordered ONE (10:22)
[2024-12-10] MEDS: LIDOCAINE 2% MDV 20 ML VIAL As Ordered ONE (10:22)
[2024-12-10] MEDS ORDERED: ONDANSETRON 4MG 2ML VIAL IV PRN (11:00)
[2024-12-10 12:03] VITALS: BP 135/71; TEMP 96.7; O2SAT 95
[2024-12-10] MEDS ORDERED: ACETAMINOPHEN 1000MG/100ML IV BAG As Ordered ONE (12:23)
== END 2024-12-10 12:40 | disposition home or self-care (01) ==
LOC: M SDC 07:26
PROVIDERS: ATTEND Podiatrist
DX: M72.2 Plantar fascial fibromatosis (principal); I10 Essential (primary) hypertension; G47.30 Sleep apnea, unspecified; K21.9 Gastro-esophageal reflux disease without esophagitis; Z79.899 Other long term (current) drug therapy; Z98.84 Bariatric surgery status; E66.01 Morbid (severe) obesity due to excess calories; Z68.43 Body mass index [BMI] 50.0-59.9, adult
CPT/HCPCS: 29893; J0131; J0665; J0688; J1100; J1580; J2250; J2405; J3010

== ENCOUNTER 2025-01-30 22:12 | Emergency (ER) | payer BC ==
[2025-01-30 22:43] LABS: BASO # 0.1 10^3/uL (0.0-0.2); BASO % 0.5 % (0.0-1.0); EOS # 0.1 10^3/uL (0.0-0.5); EOS % 0.7 % (0.0-3.0); LYMPH # 3.0 10^3/uL (1.5-5.0); LYMPH % 27.2 % (24.0-44.0); MONO # 0.9 10^3/uL (0.0-0.8); MONO % 8.2 % (2.0-8.0); NEUTROPHILS # 7.0 10^3/uL (1.5-8.5); NEUTROPHILS % 63.2 % (36.0-66.0); PLATELET COUNT, AUTOMATED 269 10^3/uL (150-450)
[2025-01-30] MEDS ORDERED: MORPHINE 4 MG/ML 1 ML VIAL IV PRN (22:50)
[2025-01-30] MEDS: NS (Normal Saline) 0.9% 1,000 ML IV ONE (22:58)
[2025-01-30] MEDS: ONDANSETRON 4MG/2ML VIAL IV ONE (22:58)
[2025-01-30] MEDS: KETOROLAC 30 MG/ML 1 ML VIAL IV ONE (22:59)
[2025-01-30] MEDS: MORPHINE 4 MG/ML 1 ML VIAL IV PRN (23:04)
[2025-01-30] MEDS ORDERED: ISOVUE-370 76% 100 ML VIAL As Ordered ONE (23:16)
[2025-01-30 23:46] LABS: ALT/SGPT 23 U/L (7.0-40); AST/SGOT 25 U/L (<34); CALCIUM LEVEL 8.9 MG/DL (8.5-10.1); CARBON DIOXIDE LEVEL 26 MMOL/L (20-31); CHLORIDE LEVEL 103 MMOL/L (98-107); CK-MB VALUE MASS 4.3 NG/ML (<3.6); CREATININE FOR GFR 0.69 MG/DL (0.70-1.30); GLOMERULAR FILTRATION RATE > 90.0 (>60); POTASSIUM SERUM 4.0 MMOL/L (3.5-5.1); SODIUM LEVEL 139 MMOL/L (136-145)
[2025-01-30 23:50] LABS: CPK CREATINE PHOSPHOKINASE 259 U/L (46-171); MB/CK RELATIVE INDEX 1.66 (< OR =4)
[2025-01-31 01:15] LABS: CK-MB VALUE MASS 3.4 NG/ML (<3.6)
[2025-01-31 01:36] LABS: CPK CREATINE PHOSPHOKINASE 209.0 U/L (46-171); MB/CK RELATIVE INDEX 1.62 (< OR =4)
[2025-01-31] MEDS: FAMOTIDINE 20 MG/2 ML VIAL IVP ONE (01:47)
[2025-01-31] MEDS: CALCIUM CARBONATE 500 MG CHEW U/D PO ONE (01:48)
[2025-01-31 02:12] VITALS: BP 136/69; TEMP 98.5; O2SAT 97
== END 2025-01-31 02:33 | disposition home or self-care (01) ==
LOC: M ED 22:12
DX: R10.9 Unspecified abdominal pain (principal); K21.9 Gastro-esophageal reflux disease without esophagitis; M51.35 Other intervertebral disc degeneration, thoracolumbar region; Z98.84 Bariatric surgery status; Z79.1 Long term (current) use of non-steroidal anti-inflammatories (NSAID); Z79.899 Other long term (current) drug therapy
CPT/HCPCS: 71045; 74177; 80048; 80076; 82550; 82553; 83690; 84484; 85025; 93005; 93041; 94760; 96361; 96374; 96375; 99285; J1308; J1885; J2405; Q9967

== ENCOUNTER → 2025-02-02 | Outpatient (CLI) | payer BC ==
[2025-02-02 13:06] LABS: BASO # 0.1 10^3/uL (0.0-0.2); BASO % 0.6 % (0.0-1.0); EOS # 0.1 10^3/uL (0.0-0.5); EOS % 0.7 % (0.0-3.0); LYMPH # 3.2 10^3/uL (1.5-5.0); LYMPH % 29.5 % (24.0-44.0); MONO # 1.0 10^3/uL (0.0-0.8); MONO % 9.4 % (2.0-8.0); NEUTROPHILS # 6.4 10^3/uL (1.5-8.5); NEUTROPHILS % 59.5 % (36.0-66.0); PLATELET COUNT, AUTOMATED 269 10^3/uL (150-450)
== END ==
LOC: M WUC 08:57
PROVIDERS: ATTEND Nurse Practitioner Adult Health
DX: R91.8 Other nonspecific abnormal finding of lung field (principal)

== ENCOUNTER → 2025-02-08 | Outpatient (CLI) | payer BC ==
[2025-02-08 13:28] LABS: BASO # 0.0 10^3/uL (0.0-0.2); BASO % 0.2 % (0.0-1.0); EOS # 0.0 10^3/uL (0.0-0.5); EOS % 0.1 % (0.0-3.0); LYMPH # 2.9 10^3/uL (1.5-5.0); LYMPH % 29.2 % (24.0-44.0); MONO # 0.9 10^3/uL (0.0-0.8); MONO % 9.2 % (2.0-8.0); NEUTROPHILS # 6.1 10^3/uL (1.5-8.5); NEUTROPHILS % 61.0 % (36.0-66.0); PLATELET COUNT, AUTOMATED 320 10^3/uL (150-450)
== END ==
LOC: M WUC 09:35
PROVIDERS: ATTEND Nurse Practitioner Adult Health
DX: R76.12 Nonspecific reaction to cell mediated immunity measurement of gamma interferon antigen response without active tuberculosis (principal)

== ENCOUNTER → 2025-02-09 | Outpatient (CLI) | payer BC ==
[~2025-02-09] MED LIST changes: +ISOVUE-370 76% 100 ML VIAL ONE
== END ==
LOC: M PLAIMG 07:23
PROVIDERS: ATTEND Nurse Practitioner Adult Health
DX: R91.8 Other nonspecific abnormal finding of lung field (principal)